=== PATIENT | female | born 1955 | race Caucasian/White ===

== ENCOUNTER 2018-09-26 09:00 | Emergency (ER) | payer OTHER ==
[~2018-09-26] VITALS: Ht 157.5 cm; Wt 68.0 kg
[~2018-09-26 09:00] MED LIST: LEVAQUIN750 MG; NABUMETONE500 MG; SYNTHROID125 MCG; ZOCOR20 MG
== END 2018-09-26 13:25 | disposition home or self-care (01) ==
LOC: ER 09:00
DX: K59.09 Other constipation (principal)

== ENCOUNTER 2018-12-25 09:08 | Outpatient (CLI) | payer OTHER | END 2018-12-25 09:19 | disposition home or self-care (01) | LOC: TOM 09:08 | DX: K56.600 Partial intestinal obstruction, unspecified as to cause (principal) ==

== ENCOUNTER 2020-10-06 08:00 | Outpatient (CLI) | payer OTHER | END 2020-10-06 15:00 | disposition home or self-care (01) | LOC: LAB 08:00 | PROVIDERS: ATTEND Internal Medicine Cardiovascular Disease | DX: Z12.11 Encounter for screening for malignant neoplasm of colon (principal) ==

== ENCOUNTER 2020-10-06 09:44 | Outpatient (CLI) | payer OTHER | END 2020-10-06 09:48 | disposition home or self-care (01) | LOC: MAMO-SONO 09:44 | PROVIDERS: ATTEND Internal Medicine Cardiovascular Disease | DX: Z12.11 Encounter for screening for malignant neoplasm of colon (principal); Z87.898 Personal history of other specified conditions; N63.11 Unspecified lump in the right breast, upper outer quadrant ==

== ENCOUNTER 2020-10-06 10:13 | Outpatient (CLI) | payer OTHER | END 2020-10-06 10:14 | disposition home or self-care (01) | LOC: NUCLEAR 10:13 | PROVIDERS: ATTEND Internal Medicine Cardiovascular Disease | DX: M81.0 Age-related osteoporosis without current pathological fracture (principal); E55.9 Vitamin D deficiency, unspecified ==